=== PATIENT | female | born 1965 | race American Indian/Alaskan Native ===

== ENCOUNTER 2018-01-07 16:01 | Emergency (ER) | payer SELFPAY ==
[2018-01-07 16:01] VITALS: BMI 30.7
--- NOTE | 2018-01-07 18:17 | ED PDOC ---
HPI: General Adult Time Seen by Provider: 01/07/18 17:19 Chief Complaint (Nursing): Medical Clearance Chief Complaint (Provider): Medical Clearance History Per: Patient, Other (police) History/Exam Limitations: clinical condition Current Symptoms Are (Timing): Still Present Additional Complaint(s): 52 year old female arrives to ED, under police custody, for medical clearance for incarceration. Patient admits to using 2 bags of heroin recently but denies any drug use today. However, police suspects possible heroin use prior to arrest. Patient reports some mild nausea and states she is going through withdrawal. Otherwise, she denies suicidal or homicidal ideation. Past Medical History Reviewed: Historical Data, Nursing Documentation, Vital Signs Vital Signs: Last Vital Signs Temp 98.0 F 01/07/18 22:53 Pulse 65 01/07/18 22:53 Resp 18 01/07/18 22:53 BP 165/90 H 01/07/18 22:53 Pulse Ox 100 01/07/18 22:53 - Family History Family History: States: Unknown Family Hx - Social History Drugs: Opiates (heroin) - Immunization History Hx Tetanus Toxoid Vaccination: No Hx Influenza Vaccination: No Hx Pneumococcal Vaccination: No - Home Medications Home Medications: Ambulatory Orders Medication Instructions Recorded Naproxen [Naprosyn] 500 mg PO BID #20 tablet 09/02/17 oxyCODONE/Acetaminophen [Percocet 1 ea PO Q6 #10 tab 09/02/17 5/325 mg Tab] - Allergies Allergies/Adverse Reactions: Allergies Allergy/AdvReac Type Severity Reaction Status Date / Time shellfish derived Allergy ANAPHYLAXIS Verified 09/02/17 00:23 Review of Systems ROS Statement: Except As Marked, All Systems Reviewed And Found Negative Gastrointestinal: Positive for: Nausea (mildly). Negative for: Vomiting, Abdominal Pain Psych: Negative for: Suicidal ideation (or homicial ideation) Physical Exam - Reviewed Nursing Documentation Reviewed: Yes Vital Signs Reviewed: Yes - Physical Exam Appears: Positive for: No Acute Distress Head Exam: Positive for: ATRAUMATIC, NORMAL INSPECTION, NORMOCEPHALIC Cardiovascular/Chest: Positive for: Regular Rate, Rhythm, Chest Non Tender Respiratory: Positive for: Normal Breath Sounds. Negative for: Respiratory Distress Gastrointestinal/Abdominal: Positive for: Normal Exam, Soft. Negative for: Tenderness Neurologic/Psych: Positive for: Mood/Affect (sleepy), Other (arousable) - Laboratory Results Result Diagrams: 01/07/18 19:18 01/07/18 19:18 - ECG O2 Sat by Pulse Oximetry: 98 (RA) Pulse Ox Interpretation: Normal - Progress ED Course And Treament: Patient noted progressively more alert in ED but now vomiting. Zofran 4mg odt initially spitting it out zofran 4mg IM x 1 dose Persistent vomiting. Zofran 4 mg iv x 1 dose; NS 500ml iv bolus given. ativan 0.5 mg iv x 1 dose and pepcid 20 mg iv x 1 dose given for persistent vomiting. Patient improved. Medical Decision Making Medical Decision Makin Initial Plan: * Labs 1720 --POC glucose: 70mgdL. Patient will be kept under observation until she becomes more alert. Scribe Attestation: Documented by Elizabeth Garcia, acting as a scribe for Yoko Carbajal PA-C. Provider Scribe Attestation: All medical record entries made by the Scribe were at my direction and personally dictated by me. I have reviewed the chart and agree that the record accurately reflects my personal performance of the history, physical exam, medical decision making, and the department course for this patient. I have also personally directed, reviewed, and agree with the discharge instructions Disposition - Clinical Impression Clinical Impression: Heroin withdrawal - Patient ED Disposition Is Patient to be Admitted: No - Disposition Disposition: Routine/Home Disposition Time: 23:53 Condition: FAIR Additional Instructions: PATIENT IS MEDICALLY AND PSYCHIATRICALLY CLEARED FOR INCARCERATION Instructions: Drug Abuse and Drug Addiction (DC), General (DC) Forms: [employer] ([employer])
[2018-01-07 19:21] LABS: BASO % 0.8 % (0.0-2.0); EOS # 0.2 K/uL (0.0-0.7); EOS % 3.9 % (0.0-4.0); HEMOGLOBIN 14.2 g/dL (12.0-16.0); LYMPH # 1.3 K/uL (1.0-4.3); LYMPH % 22.7 % (20.0-40.0); MEAN CELL VOLUME 77.4 fl (81.0-99.0); MEAN CORPUSCULAR HEMOGLOBIN 25.5 pg (27.0-31.0); MEAN CORPUSCULAR HGB CONC 32.9 g/dL (33.0-37.0); MEAN PLATELET VOLUME 7.2 fl (7.2-11.7); MONO # 0.4 K/uL (0.0-0.8); MONO % 7.5 % (0.0-10.0); NEUT # 3.8 K/uL (1.8-7.0); NEUT % 65.1 % (50.0-75.0); NRBC % 0.1 % (0.0-0.0); RBC 5.55 Mil/uL (3.80-5.20); RED CELL DISTRIBUTION WIDTH 14.2 % (11.5-14.5); WHITE BLOOD COUNT 5.8 K/uL (4.8-10.8)
[2018-01-07 19:33] LABS: ALB/GLOB RATIO 1.2 (1.0-2.1); ALBUMIN 4.6 g/dL (3.5-5.0); ALT/SGPT 38 U/L (9-52); AST/SGOT 39 U/L (14-36); BLOOD UREA NITROGEN 15 mg/dl (7-17); GFR NON-AFRICAN AMERICAN > 60
[2018-01-07] MEDS ORDERED: Sodium Chloride 0.9% 500 ML IV STA (21:43)
[2018-01-07 22:53] VITALS: RESP 18
[2018-01-07 23:53] VITALS: BP 159/83; PULSE 67; TEMP 99.3; O2SAT 98
== END 2018-01-08 ==
LOC: H.ER 16:01
DX: F11.23 Opioid dependence with withdrawal (principal)
CPT/HCPCS: 80053; 82948; 85025; 96361; 96372; 96374; 96375; G0480; J2060; J2405; J7030